=== PATIENT | male | born 1965 | race Caucasian/White ===

== ENCOUNTER 2017-03-05 20:32 | Emergency (ER) | payer OTHER ==
[2017-03-05 20:51] VITALS: BMI 28.7
--- NOTE | 2017-03-05 20:53 | PDOC ---
History of Present Illness - History of Present Illness Initial Comments: 03/05/17 20:53 The patient is a 51 year old male, with a significant past medical history of vasovagal, who presents to the emergency department for his son to have sutures and subsequently fainted. The patient reportedly felt lightheaded while his woody wound was being examined and presented these symptoms to the nurses at the station. The patient sat down at the nurses station and just prior to the nurses bringing him to an exam bed, the patient had a 20 second, momentarily loss of consciousness. He denies chest pain, shortness of breath, headache and dizziness. He denies fever, chills, nausea, vomit, diarrhea and constipation. PAST MEDICAL HISTORY: no significant history PAST SURGICAL HISTORY: no significant history FAMILY HISTORY: no pertinent history SOCIAL HISTORY: Pt lives with family and is employed. MEDICATIONS: reviewed ALLERGIES: As per nursing notes Adult ROS General: No fevers or chills, no weakness, no weight loss HEENT: No change in vision. No sore throat,. No ear pain CardioVascular: No chest pain or shortness of breath Respiratory:No cough, or wheezing. Gastrointestinal: no nausea, vomiting, diarrhea or constipation, No rectal bleeding Genitourinary: No dysuria, hematuria, or frequency Musculoskeletal: No joint or muscle pain or swelling Neurologic: (+) loss of consciousness after sight of blood. No headache, vertigo, dizziness Psychiatric: no depression Skin: No rashes or easy bruising Endocrine: no increased thirst or abnormal weight change Allergic: no skin or latex allergy All other systems reviewed and normal Adult Exam: General: Well-nourished well-developed individual, no acute distress HEENT: Throat: Normal, tonsils normal, no erythema or exudate Neck: Supple, no meningeal signs, no lymphadenopathy Eyes::Pupils equal reactive and round, extraocular motion intact Chest: Nontender to palpation Cardiac: S1-S2 normal, regular rate and rhythm, no murmurs rubs or gallops Respiratory: Lungs clear to auscultation bilateral Abdomen: Soft, nondistended, normal bowel sounds, nontender to palpation diffusely Extremities: Warm, dry, no cyanosis, clubbing, or edema Skin: No rashes Neuro: Alert and oriented x3, nonfocal exam, grossly intact, normal gait Psych: Normal mood and affect <Elyssa Yeh - Last Filed: 03/05/17 20:53> - General History Source: Patient Exam Limitations: No Limitations - History of Present Illness Initial Comments: 03/05/17 21:03 A portion of this note was documented by scribe services under my direction. I have reviewed the details of the note, within reason, and agree with the documentation. The case summary and management plan written by me. Assessment and plan: This is a 51-year-old male who was here with his son for a finger laceration. When I started to evaluate and repair the sons laceration patient began to feel poorly went to the nurse's station and told them he felt like he was given a pass out. Patient then did pass out briefly was put on a bed given an IV and the resumed consciousness within 30 seconds of having passed out. Patient has a history of vasovagal syncope in the past. Patient was at his baseline and within 10-15 minutes of having passed out. Patient denied any complaints of shortness of breath chest pain headache or any other problems. Patient discharged home will follow-up with his primary care doctor as needed <Nick Brooks I - Last Filed: 03/05/17 21:05> - General Chief Complaint: Syncope/Near Syncope Stated Complaint: SYNCOPALEPISODE WHILE WATCHING SON GET SUTURES Time Seen by Provider: 03/05/17 20:43 Past History <Elyssa Yeh - Last Filed: 03/05/17 20:53> - Past Medical History Other medical history: DENIES - Psycho/Social/Smoking Cessation Hx Anxiety: No Suicidal Ideation: No Smoking History: Never smoked Information on smoking cessation initiated: No Hx Alcohol Use: No Drug/Substance Use Hx: No Substance Use Type: None <Nick Brooks I - Last Filed: 03/05/17 21:05> - Past Medical History Allergies/Adverse Reactions: Allergies Allergy/AdvReac Type Severity Reaction Status Date / Time No Known Allergies Allergy Unverified 03/05/17 20:35 Home Medications: Ambulatory Orders NK [No Known Home Medication] 03/05/17 *Physical Exam - Vital Signs Last Vital Signs Temp Pulse Resp BP Pulse Ox 62 16 116/71 98 03/05/17 20:41 03/05/17 20:41 03/05/17 20:41 03/05/17 20:34 <Elyssa Yeh - Last Filed: 03/05/17 20:53> - Vital Signs Last Vital Signs Temp Pulse Resp BP Pulse Ox 62 16 116/71 98 03/05/17 20:41 03/05/17 20:41 03/05/17 20:41 03/05/17 20:34 <Nick Brooks I - Last Filed: 03/05/17 21:05> *DC/Admit/Observation/Transfer - Attestations Scribe Attestion: 03/05/17 20:53 Documentation prepared by Elyssa Yeh, acting as medical center representative for Nick Brooks MD <Elyssa Yeh - Last Filed: 03/05/17 20:53> - Discharge Dispostion Admit: No <Nick Brooks I - Last Filed: 03/05/17 21:05> Diagnosis at time of Disposition: Vasovagal syncope - Discharge Dispostion Disposition: HOME Condition at time of disposition: Stable - Patient Instructions Additional Instructions: Return to the emergency department immediately with ANY new, persistent or worsening symptoms. Continue any medications as previously prescribed by your physician. You should follow up with your primary doctor as soon as possible regarding today's emergency department visit. . Please make sure your doctor reviews the results of your emergency evaluation. Thank you for coming to the Emergency Department today for your care. It was a pleasure to see you today. Please note that your evaluation is INCOMPLETE until you follow-up with your doctor.
[2017-03-05 21:22] VITALS: BP 131/91; PULSE 58
== END 2017-03-05 21:25 | disposition home or self-care (01) ==
LOC: FER 20:32
DX: R55 Syncope and collapse (principal)
CPT/HCPCS: 99282-25